=== PATIENT | male | born 1940 | race Caucasian/White ===

== ENCOUNTER → 2024-12-09 11:33 | Outpatient (REF) | payer MEDICARE, OTHER, SELFPAY | LOC: RAD 11:33 | PROVIDERS: ATTENDING PHYSICIAN Urology; FAMILY PHYSICIAN Family Medicine | DX: D41.4 Neoplasm of uncertain behavior of bladder (principal); Z85.51 Personal history of malignant neoplasm of bladder | CPT/HCPCS: 74178; Q9967 ==

== ENCOUNTER → 2024-12-13 10:39 | Outpatient (REF) | payer MEDICARE, OTHER, SELFPAY | LOC: RCS 10:39 | PROVIDERS: ATTENDING PHYSICIAN Family Medicine | DX: R01.1 Cardiac murmur, unspecified (principal); I45.10 Unspecified right bundle-branch block; I10 Essential (primary) hypertension | CPT/HCPCS: 93306 ==